=== PATIENT | female | born 1990 | race Caucasian/White ===

== ENCOUNTER → 2018-08-12 17:07 | Emergency (ER) | payer OTHER ==
[2018-08-12 19:27] LABS: ABS Basophils 0 10^3/ul (0-0.2); ABS Eosinophils 0.1 10^3/ul (0-0.6); ABS Lymphocytes 2.2 10^3/ul (1.0-4.8); ABS Monocytes 0.5 10^3/ul (0-0.8); ABS Neutrophils 3.7 10^3/ul (1.5-7.7); ABS Nucleated RBC 0 10^3/ul; Eosinophil % 1.1 % (0-6); Hematocrit 41 % (35-47); Hemoglobin 13.8 g/dl (12.0-16.0); Lymphocyte % 33.8 % (25-47); Mean Corpuscular HGB Conc 34 g/dl (31-36); Mean Corpuscular Hemoglobin 32 pg (27-31); Mean Corpuscular Volume 94 fL (80-97); Mean Platelet Volume 10.1 fL (7.4-10.4); Nucleated Red Blood Cells % 0; Platelet Count 213 10^3/ul (150-450); Red Blood Count 4.32 10^6/ul (4.00-5.40); Red Cell Distribution Width 13 % (10.5-15); White Blood Count 6.4 10^3/ul (3.5-10.8)
[2018-08-12 19:39] LABS: INR 0.94 (0.77-1.02)
[2018-08-12 19:49] LABS: EGFR Non-African American 107.4 (>60)
[2018-08-13 00:09] VITALS: BP 0/0
--- NOTE | 2018-08-13 01:49 | ED ---
GI/ HPI - HPI Summary HPI Summary: A 28 y/o female presents to the ED c/o heavy menstrual cycle bleeding since 08/09. She states that she has emptied an 18ml cup 4-5 times today. She states that her period is usually a little irregular, sometimes happening every 2-3 weeks. She states that she had control implants that should last 3 years, 2.5 years ago. She also c/o abd cramping. She denies dizziness, syncope or DARNELL. - History of Current Complaint Chief Complaint: EDOBProblems Time Seen by Provider: 08/12/18 21:47 Stated Complaint: OB ISSUE/ABNORMAL BLEEDING Hx Obtained From: Patient Onset/Duration: Started Days Ago - 08/09/2018 Severity: Moderate Current Severity: Moderate Pain Intensity: 0 Associated Signs and Symptoms: Positive: Other: - Abdominal cramping - Allergy/Home Medications Allergies/Adverse Reactions: Allergies Allergy/AdvReac Type Severity Reaction Status Date / Time No Known Allergies Allergy Verified 08/12/18 17:13 PMH/Surg Hx/FS Hx/Imm Hx Cardiovascular History: Denies: Hx Syncope Sensory History: Reports: Hx Deafness Infectious Disease History: No Infectious Disease History: Denies: Traveled Outside the [place] in Last 30 Days - Family History Known Family History: Negative: Blood Disorder - Social History Alcohol Use: None Substance Use Type: Reports: None Smoking Status (MU): Never Smoked Tobacco Review of Systems Negative: Fever Positive: Abdominal Pain - crampin Positive: other - positive: uterine bleeding Neurological: Negative - Dizziness Negative: Headache, Syncope All Other Systems Reviewed And Are Negative: Yes Physical Exam - Summary Physical Exam Summary: VITAL SIGNS: Reviewed. GENERAL: Patient is a well-developed and nourished FEMALE who is lying comfortable in the stretcher. Patient is not in any acute respiratory distress. HEAD AND FACE: No signs of trauma. No ecchymosis, hematomas or skull depressions. No sinus tenderness. EYES: PERRLA, EOMI x 2, No injected conjunctiva, no nystagmus. EARS: Hearing grossly intact. Ear canals and tympanic membranes are within normal limits. MOUTH: Oropharynx within normal limits. NECK: Supple, trachea is midline, no adenopathy, no JVD, no carotid bruit, no c- spine tenderness, neck with full ROM. CHEST: Symmetric, no tenderness at palpation LUNGS: Clear to auscultation bilaterally. No wheezing or crackles. CVS: Regular rate and rhythm, S1 and S2 present, no murmurs or gallops appreciated. ABDOMEN: Soft, non-tender. No signs of distention. No rebound no guarding, and no masses palpated. Bowel sounds are normal. EXTREMITIES: FROM in all major joints, no edema, no cyanosis or clubbing. NEURO: Alert and oriented x 3. No acute neurological deficits. Speech is normal and follows commands. SKIN: Dry and warm Triage Information Reviewed: Yes Vital Signs On Initial Exam: Initial Vitals Temp Pulse Resp BP Pulse Ox 98.3 F 81 16 132/71 100 08/12/18 17:10 08/12/18 17:10 08/12/18 17:10 08/12/18 17:10 08/12/18 17:10 Vital Signs Reviewed: Yes Diagnostics - Vital Signs Vital Signs Temp Pulse Resp BP Pulse Ox 08/13/18 00:09 0 F 0 0 0/0 0 08/12/18 19:49 98.7 F 85 16 135/77 100 08/12/18 17:10 98.3 F 81 16 132/71 100 - Laboratory Lab Results: Lab Results 08/12/18 08/12/18 08/12/18 Range/Units 19:14 19:15 19:15 WBC 6.4 (3.5-10.8) 10^3/ul RBC 4.32 (4.00-5.40) 10^6/ul Hgb 13.8 (12.0-16.0) g/dl Hct 41 (35-47) % MCV 94 (80-97) fL MCH 32 H (27-31) pg MCHC 34 (31-36) g/dl RDW 13 (10.5-15) % Plt Count 213 (150-450) 10^3/ul MPV 10.1 (7.4-10.4) fL Neut % (Auto) 57.0 (38-83) % Lymph % (Auto) 33.8 (25-47) % [facility] [place] [facility] % (Auto) 7.7 H (0-7) % Eos % (Auto) 1.1 (0-6) % Baso % (Auto) 0.4 (0-2) % Absolute Neuts (auto) 3.7 (1.5-7.7) 10^3/ul Absolute Lymphs (auto) 2.2 (1.0-4.8) 10^3/ul Absolute Monos (auto) 0.5 (0-0.8) 10^3/ul Absolute Eos (auto) 0.1 (0-0.6) 10^3/ul Absolute Basos (auto) 0 (0-0.2) 10^3/ul Absolute Nucleated RBC 0 10^3/ul Nucleated RBC % 0 INR (Anticoag Therapy) 0.94 (0.77-1.02) APTT 29.5 (26.0-36.3) seconds Sodium 140 (135-145) mmol/L Potassium 3.9 (3.5-5.0) mmol/L Chloride 107 (101-111) mmol/L Carbon Dioxide 28 (22-32) mmol/L Anion Gap 5 (2-11) mmol/L BUN 8 (6-24) mg/dL Creatinine 0.66 (0.51-0.95) mg/dL Est GFR ( Amer) 130.0 (>60) Est GFR (Non-Af Amer) 107.4 (>60) BUN/Creatinine Ratio 12.1 (8-20) Glucose 89 (70-100) mg/dL Calcium 9.5 (8.6-10.3) mg/dL Total Bilirubin 0.60 (0.2-1.0) mg/dL AST 14 (13-39) U/L ALT 11 (7-52) U/L Alkaline Phosphatase 51 (34-104) U/L Total Protein 7.3 (6.4-8.9) g/dL Albumin 4.3 (3.2-5.2) g/dL Globulin 3.0 (2-4) g/dL Albumin/Globulin Ratio 1.4 (1-3) Beta HCG, Quant < 0.60 mIU/mL Result Diagrams: 08/12/18 19:15 08/12/18 19:15 Lab Statement: Any lab studies that have been ordered have been reviewed, and results considered in the medical decision making process. - Ultrasound No standard instances Ultrasound Interpretation Completed By: Radiologist - Transvaginal US: normal pelvic US. ED physician has reviewed this imaging report GIGU Course/Dx - Course Course Of Treatment: A 28 y/o female presents to the ED c/o heavy menstrual cycle bleeding since 08/09/2018. Her PE, lab results and transvaginal US were normal. Dx: dysfunctional uterine bleeding. Pt had contraceptive munir implanted 2.5 years ago and has vaginal bleeding due to the flow of hormones. The pt will be discharged home and follow up with OB. - Diagnoses Provider Diagnoses: Uterine bleeding, dysfunctional Discharge - Sign-Out/Discharge Documenting (check all that apply): Patient Departure - DC - Discharge Plan Condition: Stable Disposition: HOME Patient Education Materials: Hematuria (ED) Referrals: Niyah ENCARNACION,Vanessa Helm [Primary Care Provider] - (1-2 days) Brigitte Montero MD [Medical Doctor] - (1-2 days) Additional Instructions: Follow up with Dr. Montero, OB, in 1-2 days. RETURN TO THE EMERGENCY DEPARTMENT FOR CHANGING OR WORSENING SYMPTOMS. FOLLOW UP WITH PCP IN 1-2 DAYS. - Attestation Statements Document Initiated by Scribe: Yes Documenting Scribe: Alfonso Cabral Provider For Whom Scribe is Documenting (Include Credential): Zenaida Dickens MD Scribe Attestation: IAlfonso, scribed for Zenaida Dickens MD on 08/13/18 at 0202.
== END | disposition home or self-care (01) ==
LOC: EDBD → ED 17:07
DX: N93.8 Other specified abnormal uterine and vaginal bleeding (principal); R10.9 Unspecified abdominal pain
CPT/HCPCS: 36415; 76830; 80053; 84702; 85025; 85610; 85730; 99282